=== PATIENT | female | born 1960 | race Two or more races ===

== ENCOUNTER → 2016-11-17 | Day surgery (SDC) | payer OTHER ==
[~2016-11-17] MED LIST: APREPITANT 40 MG CAP ONE; BUPIVACAINE/EPINEPHRINE 0.25% 50 ML VIAL ONE; KETOROLAC TROMETHAMINE 30 MG/ML (IVP) VIAL IV PUSH ONE; LACTATED RINGER'S 1000 ML INJ 1,000 ML ONE; LOSA50TA PO; MIDAZOLAM HCL 2 MG/2 ML VIAL ONE; OMEP20TA39 PO; ONDANSETRON HCL 4 MG/2 ML VIAL IV PUSH ONE; PROPOFOL 200 MG/20 ML AMP IV ONE; ZOCO40TA PO; ZOLP5TAB3 PO; ceFAZolin INJ 1,000 MG VIAL ONE; oxyCODONE/ACETAMINOPHEN 5 MG/325 MG TAB ONE
--- NOTE | 2016-11-17 12:02 | TN ---
cc: BLAIR CHAPIN M.D. DATE OF SURGERY 11/17/2016 PREOPERATIVE DIAGNOSES 1. Right knee lateral meniscus tear. 2. Right knee arthritis. POSTOPERATIVE DIAGNOSES 1. Right knee complex lateral meniscus tear. 2. 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 PROCEDURE PERFORMED 1. Right knee arthroscopy with partial lateral meniscectomy. 2. Right knee arthroscopic abrasion arthroplasty that had been preceded by a chondroplasty of the medial femoral condyle. SURGEON MD Jack ANESTHESIA General via laryngeal mask augmented by local infiltration. BLOOD LOSS Minimal. FLUID REPLACEMENT 800 cc of crystalloid. COUNTS Correct. DRAINS No drains were utilized. IMPLANTS No implants were utilized. COMPLICATIONS There were no intraoperative complications. TOURNIQUET TIME The tourniquet time was 33 minutes at 300 mmHg. INDICATIONS FOR PROCEDURE Mrs. Lei is a 56-year-old woman who had a work-related injury to her right knee back in December of 2015. She sustained a lateral meniscus tear as the result of her work injury. She had been scheduled previously for arthroscopic surgery but it was delayed for medical issues (possible temporal arteritis) which was ruled out and she has been completely cleared. Please note that approximately a week prior to today's surgery she had a mild upper respiratory infection which was fully treated with a Zpack and has resolved. I offered to delay her again but she feels well and is ready to have surgery today. DESCRIPTION OF PROCEDURE After the patient was properly identified in the holding area, she correctly marked her right knee for surgery and I had initialed it as well. She was given 1 gram of intravenous Ancef as prophylactic antibiotic and then she was taken into the operating suite. She was placed under general laryngeal mask anesthetic by Dr. Santiago and then had a well-padded thigh-high tourniquet applied to her right leg. She was then prepped with alcohol and Hibiclens and draped in the normal standard fashion including the use of an impervious stockinette from the foot all the way up to the midcalf level. At this time a brief time-out was held, the team was in agreement and the case was now begun. Her leg was elevated, then exsanguinated with an Juan wrap and the tourniquet was elevated at 300 mmHg. Standard anteromedial and anterolateral joint line portals were established under direct vision. The scope was introduced. A small bloody effusion was evacuated. Inflow was initiated and the survey of the joint was as follows: There was relatively mild chondromalacia of the patellofemoral joint, less than had been suspected based on her radiographs and her MRI, nothing that required any significant chondroplasty. There was no high-grade chondral loss in any one location. There was some mild hypertrophic synovial tissue in the suprapatellar pouch but nothing that really required any type of chondroplasty or synovectomy. The medial gutter was now explored. No loose bodies or significant synovitis was identified. The medial compartment was now entered. There was a large lesion directly over the weightbearing surface of the medial femoral condyle consistent with primarily a grade 3A and 3B but a few areas of grade 4A chondral loss directly over the medial femoral condyle. It took up approximately half of the weightbearing surface and has produced some scoring and fissuring on the tibial side but no deep loss was seen Once the unstable edge of cartilage was excised via chondroplasty, I elected to perform an abrasion arthroplasty of the grade 4 regions to encourage fibrcartilage formation to improve her pain. I used the bur on the highest RPM and breached the subchondral bone to permit marrow elements to rise to the surface of the defect and help resurface it. The medial meniscus itself had some fraying seen near the anterior horn and very limited meniscus tissue was excised here. The rest of the medial meniscus was completely intact and stable to probing and no significant meniscal tissue was excised. The intercondylar notch was now explored. The ACL was seen to be intact and tensioned appropriately with anterior drawer. The lateral compartment was now entered and there was a very degenerative-appearing complex tear seen at the posterior-half of the lateral meniscus. There was evidence of near-complete sublux of the whole posterior-third into the joint space and this was fully debrided with both an oscillating shaver and then I had to use hand instruments to take it out bite by bite until it was stable. The remaining portion of the lateral meniscus consisted of a small posterior rim and intact bridge over the popliteus hiatus and then a small rim to approximately the midbody of the lateral meniscus and then more significant meniscal tissue was present around the anterolateral corner. The anterior horn required excision as well as this was completely macerated. The remnant of the lateral meniscus was stable to probing and would not sublux into the joint. There was some hypertrophic vascular tissue seen near the anterior portion of the lateral meniscus where it likely had been inflamed previously and had developed some reattachment as a result of being inflamed in this area; it was very stable. The cartilage in the lateral compartment showed relatively mild grade 2 chondromalacia that did not require chondroplasty.No loose bodies were identified in the lateral gutter. There was no evidence of any further significant intraarticular pathology present. The knee was taken through a range of motion several times. I went ahead and inspected all compartments once again and saw no evidence of any further debris to excise. The joint surfaces were relatively smooth in comparison to how they were initially. The knee joint was suctioned decompressed and reinsuflated several times and no further pathology was identified. The instruments were removed. The portals were closed with 3-0 nylon simple sutures and were then injected with approximately 30 cc of 0.25% Marcaine with epinephrine for postop pain relief. The wounds were then dressed with Xeroform, 4x4s, ABD and an Juan wrap. The tourniquet was let down. There was brisk return of capillary refill. She was awoken from anesthesia and taken to Recovery in stable condition. Appropriate postoperative orders have been written. Blair Chapin MD Electronically Signed Blair Chapin MD SIS/YADIRA /10:13 AM /11:46 AM [facility]
== END | disposition home or self-care (01) ==
LOC: ESDC 07:39
PROVIDERS: ATTEND Orthopaedic Surgery Sports Medicine
DX: S83.271A Complex tear of lateral meniscus, current injury, right knee, initial encounter (principal); M94.261 Chondromalacia, right knee
CPT/HCPCS: 01400; 29879; 29881; J0690; J1885; J2250; J2405; J3010; J7120; J8501